=== PATIENT | female | born 1970 | race Caucasian/White ===

== ENCOUNTER 2024-08-20 06:42 | Outpatient (OUT) | payer OTHER, SELFPAY ==
[2024-08-20 08:36] LABS: Thyroid Stimulating Hormone 1.599 uIU/mL (0.358-3.740)
[2024-08-20 09:36] LABS: Free T4 0.79 ng/dL (0.76-1.46)
[2024-08-21 06:10] LABS: Homocyst(e)ine 9.1 umol/L (0.0-14.5)
[2024-08-21 10:10] LABS: Vitamin B12 916 pg/mL (232-1245)
[2024-08-21 12:09] LABS: ANA Direct Negative (Negative)
[2024-08-21 16:10] LABS: Lyme Total Antibody CIA Negative (Negative)
== END 2024-08-20 06:43 | disposition home or self-care (01) ==
LOC: LAB 06:47
PROVIDERS: PCP Family Medicine; Visit Provider Psychiatry & Neurology Neurology
DX: G62.9 Polyneuropathy, unspecified (principal); R79.89 Other specified abnormal findings of blood chemistry; G60.9 Hereditary and idiopathic neuropathy, unspecified; Z11.3 Encounter for screening for infections with a predominantly sexual mode of transmission; E53.1 Pyridoxine deficiency; I70.91 Generalized atherosclerosis; D51.3 Other dietary vitamin B12 deficiency anemia; M79.10 Myalgia, unspecified site; E78.5 Hyperlipidemia, unspecified
CPT/HCPCS: 36415; 82607; 82746; 83090; 83921; 84207; 84439; 84443; 86038; 86618